=== PATIENT | female | born 1980 | race Caucasian/White ===

== ENCOUNTER 2016-07-23 19:34 | Emergency (ER) | payer BC, OTHER ==
--- OUTSIDE RECORDS SUMMARY | 2016-07-23 21:56 | XMS REPORT | Continuity of Care Document ---
:1980 Author Organization [facility] ([facility]) Address [address] [place] [address] Phone [phone] Care Team Providers Name Role Phone Rodney Jimenez Primary Care Provider [phone] Source Comments This disclosure is being made pursuant to the Care Everywhere program, applicable federal and state laws, and may not contain all informaitonavailable regarding this patient.[facility] ([facility]) Active Allergies and Adverse Reactions No Known Allergies Current Medications Prescription Sig. Disp. Refills Start Date End Date Status ibuprofen 600 mg Take 1 tablet (600 60 tablet 1 02/04/2015 Active tablet mg total) by mouth every 6 hours as needed docusate 100 mg Take 1 capsule (100 60 capsule 1 02/04/2015 Active capsule mg total) by mouth 2 times daily as needed metroNIDAZOLE 500 mg Take 1 tablet (500 28 tablet 0 02/13/2015 Active tablet mg total) by mouth every 12 hours oxyCODONE-acetaminop Take 1-2 tablets by 30 tablet 0 02/13/2015 Active hen 5-325 mg per mouth every 4 hours tablet as needed Do Not exceed 4000 mg of acetaminophen per 24 hours. amoxicillin-clavulan Take 1 tablet by 28 tablet 0 02/13/2015 Active ate 875-125 mg per mouth 2 times daily tablet Active Problems Problem Noted Date Obesity, Class I, BMI 30-34.9 02/04/2015 Migraine without aura 04/04/2011 Overview: Present before . Using tylenol. Has PRN promethazine(phenergan) Resolved Problems Problem Noted Date Resolved Date Postprocedural fever 02/11/2015 03/08/2015 Fluid collection at surgical site 02/11/2015 03/08/2015 Abnormal uterine bleeding (AUB) 01/10/2015 03/08/2015 Pelvic pain in female 01/10/2015 03/08/2015 Contraception 12/07/2011 01/10/2015 Supervision of normal 09/25/2011 01/10/2015 Nausea and vomiting of - resolved 04/04/2011 01/10/2015 Overview: Using gingerale. Advised on using nilsa/unisom/Vit B6. Has kishan prn script. HSIL pap smear @[facility]- mosaicism/punctations on 1st tri colp, 03/09/201101/10 repeat colp w/ bx ASCUS with ABHISHEK I,-plan for colp Hx of preclampsia in 2001 delivered at 36 weeks- baseline labs 03/03/2011 performed; 24hr urine eihihyq=392.9, 04/03/11. Hx of Gestational HTN 2005, monitoring BP at home Multiple SAB- all within first trimester- thromophilia workup 03/03/2011 neg at new OB Overview: If current becomes SAB the plan is to perform maternal karyotype hx of 4th degree in 2001- followed by without complication 03/03/2011 in 2005 Tobacco use- down to 7cigs/day 04/03/11. Has quitline info. 03/03/20112014 Confident she can quit soon Immunizations Name Dates Previously Given Next Due Influenza, PF 05/29/2011 Tdap 04/22/2008 Social History Tobacco Use Types Packs/Day Years Used Date Current Every Day Smoker Cigarettes 0.5 18 Smokeless Tobacco: Never Used Tobacco Cessation:Counseling Given: Yes Comments:given info Alcohol Use Drinks/Week oz/Week Comments Yes about 4 per year Last Filed Vital Signs Vital Sign Reading Time Taken Blood Pressure 100/62 03/09/2015 3:49 PM [employer] Pulse 74 03/09/2015 3:49 PM [employer] Temperature 37.2 C (99 F) 03/09/2015 3:49 PM [employer] Respiratory Rate 16 02/13/2015 8:00 AM CDT Height 1.727 m (5' 8") 02/11/2015 8:23 PM CDT Weight 99.4 kg (219 lb 2.2 oz) 03/09/2015 3:49 PM [employer] Body Mass Index 33.33 03/09/2015 3:49 PM [employer] Oxygen Saturation 98% 02/13/2015 8:00 AM CDT Plan of Care Health Maintenance Due Date Last Done Comments Hepatitis B Vaccine (1 of 3 1979 - Primary Series) Lipid Disorder Screening 1997 MMR Vaccine 1997 Pneumococcal Vaccine (1 of 1 1998 - PPSV23) Influenza Vaccine: Seasonal 11/21/2015 05/29/2011 (#1) Cervical Cancer Screening 01/10/2018 01/10/2015, Additional history exists 12/05/2011, 05/03/2011 Td Vaccine 04/22/2018 04/22/2008 Tdap Vaccine Completed 04/22/2008 Results from Last 3 Months Not on file
--- NOTE | 2016-07-23 21:59 | ERNOTE ---
Lower Extremity HPI - General Lower Extremities Pain: thigh: right - achy pain Time Seen by Provider: 07/23/16 21:51 Source: patient Exam Limitations: no limitations - Immun/Allergies/Home Medications Immunizations: IMMUNIZATION HX Immunizations Up to Date Yes History of Influenza Vaccine No Hx Pneumococcal Vaccination No Allergies/Adverse Reactions: Allergies Allergy/AdvReac Type Severity Reaction Status Date / Time No Known Allergies Allergy Unverified 02/16/13 09:55 Home Medications: HOME MEDICATIONS Ibuprofen 800 mg PO Q6H PRN 02/16/13 [Last Taken Unknown] - History of Present Illness Narrative: Pt states that her thigh began to hurt this afternoon without reason. No injury or strain Occurred: this afternoon Location of Incident: work Method of Injury: Reports: no apparent injury Associated Symptoms: Reports: none Review of Systems - Review of Systems Constitutional: Absent: recent illness, fever EYE: Present: no symptoms reported ENT: Present: no symptoms reported Respiratory: Absent: shortness of breath, cough Cardiology: Absent: chest pain, palpitations Gastrointestinal/Abdominal: Present: no symptoms reported Genitourinary: Present: no symptoms reported Musculoskeletal: Present: See HPI, back pain - minor non-specific Skin: Present: no symptoms reported Neurological: Absent: weakness, numbness, tingling Endocrine: Present: no symptoms reported Hematologic/Lymphatic: Present: no symptoms reported Psych: Present: no symptoms reported - Patient's Past Medical History Patient History - Medical: No pertinent hx Patient History - Cardiac/Respiratory: No pertinent hx Patient History - Cancer: Cervical Patient History - Surgical Procedures: Cholecystectomy, Hysterectomy, T & A Patient History - Other: None - Social History Living Situations: alone Abuse History: No History of abuse Psych History: No pertinent hx Smoking Status: Current every day smoker Alcohol Use: rarely Drug Use: none - Immunizations Immunizations Up to Date: Yes Hx Pneumococcal Vaccination: No History of Influenza Vaccine: No Physical Exam - Physical Exam General Appearance: Present: wd/wn, alert, no apparent distress Ears, Nose, Throat: Present: normal ENT inspection Respiratory: Present: no respiratory distress, lungs clear Cardiovascular/Chest: Present: regular rate, rhythm Peripheral Pulses: N=norm/S=strong/W=weak/B=bound/A=absent: Femoral (R): Normal , Dorsalis-pedis (R): Normal Back Exam: Present: normal inspection, normal range of motion, no vertebral tenderness, other - some tenderness with SI tests but no SI tenderness to palpation Extremity Exam: Present: normal inspection, non-tender. Absent: pedal edema, calf tenderness, bony tenderness, joint redness, joint swelling, extremity edema Neurological Exam: Present: alert, oriented, normal mood/affect, other - SLR negative b/l. Skin Exam: Present: normal color, warm/dry ED Progress - Results and Orders Patient's Lab Results:: I have reviewed the patient's lab results. Results and Orders: Laboratory Tests 07/23/16 07/23/16 07/23/16 22:10 22:10 22:10 WBC 7.6 Hgb 14.4 Hct 41.2 Plt Count 190 ESR 5 D-Dimer C-Reactive Prot, Quant Less than 0.2 07/23/16 22:10 WBC Hgb Hct Plt Count ESR D-Dimer 0.21 C-Reactive Prot, Quant - Vital Signs Patient's Vital Signs:: I have reviewed the patient's vital signs. Vital Signs: Vital Signs 07/23/16 20:35 Temperature 37.4 C Pulse Rate 90 Respiratory 14 Rate Blood Pressure 120/86 O2 Sat by Pulse 97 Oximetry - Progress/Reassessment Chief Complaint: Lower Extremity Pain/ Injury Departure Clinical Impression: Leg pain Qualifiers: Laterality: right Qualified Code(s): M79.604 - Pain in right leg - Departure Disposition: Home self-care Condition: Good Instructions: Cryotherapy, [id number], Cryotherapy Additional Instructions: See your regular doctor if not improving in 5-7 days. May use motrin or aleve on a regular basis as package directs.
[2016-07-23 22:17] LABS: Hematocrit 41.2 % (37.0-47.0); Hemoglobin 14.4 gm/dL (12.5-16.0); Mean Cell Volume 86.7 fl (78-100); Mean Corpuscular Hemoglobin 30.3 pg (27-31); Mean Platelet Volume 10.7 fl (6.0-9.5); Neutrophil # 5.5 K/mm3 (1.3-6.0); Neutrophil % 72.4 % (42-75.0); Platelet Count 190 K/mm3 (150-450); Red Blood Count 4.75 M/mm3 (4.2-5.4); Red Cell Distribution Width 12.2 % (11.5-14.0); White Blood Count 7.6 K/mm3 (4.0-10.5)
[2016-07-23 23:41] VITALS: BP 118/87
== END 2016-07-23 23:42 | disposition home or self-care (01) ==
LOC: ER 19:34
DX: M79.604 Pain in right leg (principal)